=== PATIENT | male | born 1935 | race Caucasian/White ===

== ENCOUNTER 2023-02-01 12:48 | Inpatient (IN) | payer MEDICAID, MEDICARE ==
[~2023-02-01] VITALS: Ht 170.1 cm; Wt 64.4 kg
[2023-02-01 13:04] VITALS: O2SAT 99
[2023-02-01] MEDS ORDERED: CARV6.2548 PO (13:04)
[2023-02-01] MEDS ORDERED: METF-415 PO (13:04)
[2023-02-01] MEDS ORDERED: APIX2.5T PO (13:04)
[2023-02-01] MEDS ORDERED: LOPE2TAB26 PO (13:04)
[2023-02-01] MEDS ORDERED: OXYC-485 PO (13:04)
[2023-02-01] MEDS ORDERED: LEVO75TA7 PO (13:04)
[2023-02-01] MEDS ORDERED: ALBU18HF2 IH (13:04)
[2023-02-01] MEDS ORDERED: QUET25TA36 PO (13:04)
[2023-02-01] MEDS ORDERED: ELIQUIS (13:04)
[2023-02-01] MEDS ORDERED: ATOR-2 PO (13:04)
[2023-02-01 14:47] LABS: CHLORIDE 102 mEq/L (98-107); INDEX HEMOLYSI 1 (1-3); INDEX ICTERIC 1 (1-4); INDEX LIPEMIC 1 (1-3); POTASSIUM 4.5 mEq/L (3.5-5.1); SODIUM 135 mEq/L (136-145)
[2023-02-01 14:51] LABS: BASOPHILS % 0.7 % (0.0-2.0); EOSINOPHILS % 8.6 % (0.0-5.0); HEMATOCRIT. 29.9 % (42.0-52.0); LYMPHOCYTES % 22.5 % (20.0-50.0); MEAN CORPUSCULAR HEMOGLOBIN 30.9 pg (28.0-32.0); MEAN CORPUSCULAR HGB CONC 33.5 g/dL (31.0-37.0); MEAN CORPUSCULAR VOLUME 92.2 fL (80.0-94.0); MEAN PLATELET VOLUME 8.5 fl (7.4-10.4); MONOCYTES % 9.9 % (2.0-8.0); NEUTROPHILS % 58.3 % (40.0-76.0); PLATELET 295 x1000/uL (130-400); RED BLOOD CELL COUNT 3.24 mill/uL (4.7-6.1); RED CELL DISTRIBUTION WIDTH 17.3 % (11.6-14.6); WHITE BLOOD COUNT 5.4 x1000/uL (4.5-11.0)
[2023-02-01 14:52] LABS: INR 1.4; PARTIAL THROMBOPLASTIN TIME 37.2 sec (23.4-31.0); PROTHROMBIN TIME 14.3 sec (9.6-11.0)
[2023-02-01 14:57] LABS: ALANINE AMINOTRANSFERASE 16 IU/L (13-61); ALBUMIN 2.8 g/dL (3.4-5.0); ASPARTATE AMINOTRANSFERASE 35 IU/L (15-37); BILIRUBIN TOTAL 1.2 mg/dL (0.1-1.0); CALCIUM 8.3 mg/dL (8.5-10.1); CARBON DIOXIDE 29 mEq/L (21-32); CREATININE 1.6 mg/dL (0.6-1.3); GLUCOSE 114 mg/dL (70-105); PROTEIN TOTAL 6.3 g/dL (6.0-8.3); UREA NITROGEN BLOOD 24 mg/dL (7-21)
[2023-02-01] MEDS ORDERED: MORPHINE SULFATE 2 MG/ML CPJ (NOT FOR IM USE) IV ONE (22:15)
[2023-02-01] MEDS ORDERED: MORPHINE SULFATE 10 MG/ML CPJ IM NR (22:45)
[2023-02-02 04:30] VITALS: BP 159/57; PULSE 60; RESP 19; TEMP 97.7
[2023-02-02] MEDS ORDERED: DOCUSATE SODIUM 100MG CAPSULE PO PRN (05:00)
[2023-02-02] MEDS ORDERED: ACETAMINOPHEN 325MG TABLET PO PRN (05:00)
[2023-02-02] MEDS: SODIUM CHLORIDE 0.9% 1,000 ML IV SCH (05:00)
[2023-02-02] MEDS ORDERED: HYDROCODONE/ACETAMINOPHEN 5/325MG TABLET PO PRN (05:00)
[2023-02-02] MEDS ORDERED: MAGNESIUM/ALUMINUM HYDROXIDE/SIMETHICONE 30ML UDC PO PRN (05:00)
[2023-02-02] MEDS ORDERED: ONDANSETRON HCL 4MG/2ML INJ IV PRN (05:00)
[2023-02-02] MEDS ORDERED: IPRATROPIUM/ALBUTEROL 0.5-3(2.5)MG/3ML NEB HHN PRN (05:00)
[2023-02-02] MEDS ORDERED: GUAIFENESIN 200MG/10ML SUGAR FREE UDC PO PRN (05:00)
[2023-02-02] MEDS ORDERED: CLONIDINE 0.1MG TABLET PO PRN (05:00)
[2023-02-02 06:19] VITALS: BP 159/57; PULSE 60; RESP 19; TEMP 97.7
[2023-02-02 11:29] LABS: INDEX HEMOLYSI 1 (1-3); INDEX ICTERIC 1 (1-4); INDEX LIPEMIC 1 (1-3)
[2023-02-02 11:36] LABS: HDL CHOLESTEROL 23 mg/dL (40-59); IRON 35 ug/dL (50-175); LDL CHOLESTEROL 15 mg/dL (5-100); TOTAL IRON BINDING CAPACITY 223 ug/dL (250-450); TRIGLYCERIDE 81 mg/dL (0-150)
[2023-02-02 11:38] LABS: CHOLESTEROL < 50 mg/dL (<200)
[2023-02-02 12:00] VITALS: BP 160/48; PULSE 59; RESP 20; TEMP 98.2
[2023-02-02 12:11] LABS: FOLIC ACID (FOLATE) SERUM 10.5 ng/mL (>5.38)
[2023-02-02 18:16] LABS: HEPATITIS B SURFACE ANTIGEN NEGATIVE
[2023-02-02 19:21] LABS: HEPATITIS C VIR.AB 0.24 INDEXVAL (0.00-0.80)
[2023-02-02 20:00] VITALS: BP 99/69; PULSE 63; RESP 18; TEMP 97.9
[2023-02-02] MEDS ORDERED: NALOXONE HCL 0.4MG/ML VIAL IV PRN (20:00)
[2023-02-03] VITALS: BP 162/70; PULSE 62; RESP 16; TEMP 98.1
[2023-02-03 02:35] LABS: CLARITY URINE CLEAR (CLEAR); COLOR URINE YELLOW (YELLOW); GLUCOSE URINE NEGATIVE (NEGATIVE); KETONES URINE NEGATIVE (NEGATIVE); LEUKOCYTE ESTERASE URINE 1+ (NEGATIVE); NITRITE URINE NEGATIVE (NEGATIVE); OCCULT BLOOD URINE 3+ (NEGATIVE); PH URINE 5.5 (4.5-8.0); PROTEIN URINE 1+ (NEGATIVE); SPECIFIC GRAVITY URINE 1.018 (1.005-1.030); UROBILINOGEN URINE 0.2 E.U./dL (0.2-1.0)
[2023-02-03 02:38] LABS: RBC URINE TNTC /hpf (0-2); SQUAMOUS EPITHELIAL CELL URINE 1+ /lpf (RARE/1+); YEAST URINE NONE SEEN
[2023-02-03 03:12] LABS: BACTERIA URINE TRACE
[2023-02-03] MEDS: ACETAMINOPHEN 325MG TABLET PO PRN ×2 (03:22→22:14)
[2023-02-03 04:00] VITALS: BP 151/64; PULSE 60; RESP 20; TEMP 97.7
[2023-02-03] MEDS ORDERED: HALOPERIDOL LACTATE 5MG/ML VIAL IM NR (04:45)
[2023-02-03 08:00] VITALS: BP 155/72; PULSE 60; RESP 16; TEMP 98
[2023-02-03] MEDS: SODIUM CHLORIDE 0.9% 1,000 ML IV SCH ×2 (08:00→20:40)
[2023-02-03 10:39] LABS: EOSINOPHILS % 6.7 % (0.0-5.0); HEMATOCRIT. 29.6 % (42.0-52.0); LYMPHOCYTES % 22.2 % (20.0-50.0); MEAN CORPUSCULAR HEMOGLOBIN 30.8 pg (28.0-32.0); MEAN CORPUSCULAR HGB CONC 33.8 g/dL (31.0-37.0); MEAN PLATELET VOLUME 8.4 fl (7.4-10.4); NEUTROPHILS % 61.1 % (40.0-76.0); PLATELET 270 x1000/uL (130-400); RED BLOOD CELL COUNT 3.25 mill/uL (4.7-6.1); RED CELL DISTRIBUTION WIDTH 17.8 % (11.6-14.6); WHITE BLOOD COUNT 5.9 x1000/uL (4.5-11.0)
[2023-02-03 11:22] LABS: CHLORIDE 104 mEq/L (98-107); INDEX HEMOLYSI 1 (1-3); INDEX ICTERIC 1 (1-4); INDEX LIPEMIC 1 (1-3); POTASSIUM 4.4 mEq/L (3.5-5.1); SODIUM 134 mEq/L (136-145)
[2023-02-03 11:37] LABS: ALANINE AMINOTRANSFERASE 17 IU/L (13-61); ALBUMIN 2.9 g/dL (3.4-5.0); ASPARTATE AMINOTRANSFERASE 31 IU/L (15-37); BILIRUBIN TOTAL 1.2 mg/dL (0.1-1.0); CALCIUM 8.4 mg/dL (8.5-10.1); CARBON DIOXIDE 28 mEq/L (21-32); CREATININE 1.3 mg/dL (0.6-1.3); GLUCOSE 149 mg/dL (70-105); HDL CHOLESTEROL 25 mg/dL (40-59); LDL CHOLESTEROL 19 mg/dL (5-100); PROTEIN TOTAL 6.3 g/dL (6.0-8.3); T4 FREE 0.87 ng/dL (0.76-1.46); TRIGLYCERIDE 82 mg/dL (0-150); UREA NITROGEN BLOOD 21 mg/dL (7-21)
[2023-02-03 11:41] LABS: CHOLESTEROL < 50 mg/dL (<200)
[2023-02-03 12:00] VITALS: BP 102/66; PULSE 60; RESP 16; TEMP 98
[2023-02-03] MEDS: FERROUS SULFATE 325MG TABLET PO SCH ×2 (12:23→18:13)
[2023-02-03 16:00] VITALS: BP 134/64; PULSE 60; RESP 16; TEMP 98.6
[2023-02-03 20:00] VITALS: BP 141/34; PULSE 59; RESP 20; TEMP 98.6
[2023-02-03] MEDS ORDERED: ATORVASTATIN CALCIUM 40MG TABLET PO SCH (21:00)
[2023-02-04] VITALS (7 sets, daily range): BP systolic 139–155; BP diastolic 54–69; PULSE 60–67; RESP 18–20; TEMP 97.7–98.5
[2023-02-04] MEDS ORDERED: LEVOTHYROXINE SODIUM 75MCG TABLET PO SCH (07:20)
[2023-02-04] MEDS: FERROUS SULFATE 325MG TABLET PO SCH ×3 (08:52→17:43)
[2023-02-04] MEDS ORDERED: QUETIAPINE FUMARATE 25MG TABLET PO SCH (09:00)
[2023-02-04] MEDS ORDERED: TAMSULOSIN HCL 0.4MG SR CAPSULE PO SCH (09:00)
[2023-02-04] MEDS: SODIUM CHLORIDE 0.9% 1,000 ML IV SCH (10:00)
[2023-02-04] MEDS: APIXABAN 5 MG TABLET PO SCH ×2 (12:00→17:43)
== END 2023-02-04 18:01 | DRG 698 ==
LOC: ER 14:03 → 6EST 02-02 00:24
PROVIDERS: ADMIT Hospitalist; ATTEND Hospitalist
DX: T83.83XA Hemorrhage due to genitourinary prosthetic devices, implants and grafts, initial encounter (principal); E43 Unspecified severe protein-calorie malnutrition; D62 Acute posthemorrhagic anemia; N17.9 Acute kidney failure, unspecified; R31.9 Hematuria, unspecified; D72.10 Eosinophilia, unspecified; E11.9 Type 2 diabetes mellitus without complications; E78.00 Pure hypercholesterolemia, unspecified; I48.0 Paroxysmal atrial fibrillation; I50.9 Heart failure, unspecified; Z79.01 Long term (current) use of anticoagulants; Z88.0 Allergy status to penicillin; Z95.0 Presence of cardiac pacemaker; Z79.899 Other long term (current) drug therapy; Z68.22 Body mass index [BMI] 22.0-22.9, adult; Y83.9 Surgical procedure, unspecified as the cause of abnormal reaction of the patient, or of later complication, without mention of misadventure at the time of the procedure; Y92.89 Other specified places as the place of occurrence of the external cause
CPT/HCPCS: 36415; 76857; 80053; 80061; 81003; 82607; 82728; 82746; 83540; 83550; 84439; 84443; 85025; 86803; 87340; 93970; 97162; 97166; 97535; 99285; J1630; J2270; J7030; A4315